=== PATIENT | female | born 1970 ===

== ENCOUNTER → 2024-08-24 09:37 | Outpatient (BNVA) | payer MEDICAID, SELFPAY | PROVIDERS: Visit Provider Orthopaedic Surgery | DX: M65.321 Trigger finger, right index finger (principal); M65.331 Trigger finger, right middle finger; G40.909 Epilepsy, unspecified, not intractable, without status epilepticus; K58.9 Irritable bowel syndrome, unspecified | CPT/HCPCS: 73130; 99204 ==

== ENCOUNTER 2024-09-27 06:16 | Day surgery (SDC) | payer MEDICAID, SELFPAY ==
[2024-09-27] VITALS (10 sets, daily range): BP systolic 111–141; BP diastolic 69–91; PULSE 65–76; RESP 15–18; TEMP 36.3–36.7; O2SAT 97–100; BMI 32.8
--- NOTE | 2024-09-27 08:02 | ANES.PREANE2 ---
Pre-Anesthetic Assessment Height/Weight: Height 5 ft 8 in Weight 216 lb Temp Pulse Resp BP Pulse Ox O2 Del Method 97.4 F L 76 18 111/71 98 Room Air 09/27/24 07:40 09/27/24 07:40 09/27/24 07:40 09/27/24 07:40 09/27/24 07:40 09/27/24 07:40 Preop Diagnosis: Trigger finger Operation Date: 09/27/24 09:30 Proposed Procedures p RIGHT Index and RIGHT Long Finger Trigger Finger Release(Right) - Montana Barry MD Was Beta Preeti taken within 24 hours: N/A Was Clonidine taken within 24 hours: N/A Last intake: Intake Last Liquid Date 09/26/24 Last Liquid Time 18:00 Last Solid Date 09/26/24 Last Solid Time 18:00 Social No alcohol and No tobacco Quit smoking in March Exam alert, oriented x 3 and regular rate & rhythm Airway Submandibular: within normal limits Cervical ROM: within normal limits Mallampati: Class II Comments: Comments: Edentulous Anesthetic Plan ASA status: 3 Anesthesia: General Other: No prior issues with anesthesia NPO since yesterday evening History of GERD, controlled with omeprazole Denies any cardiac issues Quit smoking in March Chronic seizures, states that phenytoin is the only thing that has worked for her. Patient also has a VNS unit. Last seizure was in May Plan for general anesthesia with LMA Medications/Allergies Home Medications ?Medication ?Instructions ?Recorded ?Confirmed ?Last Taken ?Type atorvastatin 20 mg tablet 20 mg PO DAILY 08/24/24 09/26/24 09/26/24 History clonazepam 0.5 mg tablet 0.5 mg PO PRN PRN Anxiety 08/24/24 09/26/24 Unknown History diphenhydramine HCl 25 mg capsule 25 mg PO TID PRN Sleep 08/24/24 09/26/24 09/26/24 History (Benadryl) duloxetine 60 mg capsule,delayed 60 mg PO DAILY 08/24/24 09/26/24 09/12/24 History release omeprazole 40 mg capsule,delayed 40 mg PO DAILY 08/24/24 09/26/24 09/26/24 History release phenytoin sodium extended 100 mg 100 mg PO DAILY 08/24/24 09/26/24 09/26/24 History capsule Allergies Allergy/AdvReac Type Severity Reaction Status Date / Time cephalexin (From Keflex) Allergy Severe swelling Verified 09/26/24 14:59 gabapentin (From Neurontin) Allergy Severe Unknown Verified 09/26/24 14:59 latex Allergy Severe ADR-Itching Verified 09/26/24 14:59 Penicillins Allergy Severe rash Verified 09/26/24 14:59 Sulfa (Sulfonamide Allergy Severe ALGY-Difficulty Verified 09/26/24 14:59 Antibiotics) Breathing acetaminophen (From Tylenol) AdvReac Severe halucinatio Verified 09/26/24 14:59 ns PFSH Anesthesia Family History (Updated 08/24/24 @ 10:01 by Shelby Nova MA) Father Cancer Brother Clotting disorder Social History Smoking and tobacco/nicotine status: former use of tobacco/nicotine Quit status (tobacco/nicotine): has quit using Year quit tobacco: 2024 Second hand smoke exposure: No Alcohol intake: former Substance/Drug Use: never
--- NOTE | 2024-09-27 08:03 | W.PM.OPSUD ---
Surgery/Procedure H&P Update DATE OF PROCEDURE: September 27, 2024 DATE H&P PERFORMED: 08/24/24 H&P UPDATE INFORMATION: I have reviewed H&P completed within last 30 days, I have examined patient prior to procedure and No changes to prior documentation PREOP DIAGNOSIS: Trigger fingers of right index and long finger PLANNED PROCEDURE: Operation Date: 09/27/24 09:30 Proposed Procedures p RIGHT Index and RIGHT Long Finger Trigger Finger Release(Right) - Montana Barry MD
[2024-09-27] MEDS: BUPivacaine 0.5% INJ 10 mL INJECTION (08:57)
--- NOTE | 2024-09-27 09:09 | P.OP_ITS ---
Operative Report Date of procedure: September 27, 2024 Surgeon: Montana Barry MD Procedure: Preoperative diagnosis: Trigger fingers of the right index and right long fingers Postoperative diagnosis: Same Procedure: Trigger finger release of index and long fingers of the right hand Surgeon: Montana Steinberg MD Anesthesia: General With local anesthetic EBL: None Indications: Reema is a 54-year-old white female who presented to the orthopedic clinics with triggering of her index and long finger. This has been worsening over the last several months to years to the point now that she has to manually straighten her fingers when she has them locked down. This become very painful and is hinder some activities of daily living. Therefore after clinical exam proved that there was triggering of the fingers and that there was nodules in the flexor tendon patient was offered trigger finger release of the index and long finger of the right hand. All risks benefits treatment alternatives are discussed with the patient she is agreeable to this at this time. Procedure: After obtaining her consent patient was taken the operating room on her [facility] and had general anesthetic administered. Once good anesthesia was achieved right upper extremities prepped and draped usual fashion. After surgical timeout an Esmarch was used to exsanguinate the hand and to use as a tourniquet on the mid forearm region. Identification of the nodule of the long finger was identified and a skin incision made perpendicular to the axis of the finger and tendon at the mid palmar crease. Sharp dissection taken down to subcutaneous tissue. Then in blunt sharp fashion with tenotomy scissors tendon sheath is identified. This was then opened up with a #15 blade. Tenotomy scissors then used to divide the A1 sandy of the long finger. Fingers with range of motion and tendon was gliding normally. Attention was then turned to the index finger. In a similar fashion nodule of the flexor tendon was identified and a mid palmar crease incision was made perpendicular to the axis of the tendon. Once below subcutaneous tissues blunt sharp dissection with tenotomy scissor was done down to the tendon sheath. Tendon sheath open #1 5 blade. A1 pulleys then divided with small tenotomy scissors. Fingers with range of motion and tendon is gliding smoothly. Wounds were then closed with 3- 0 nylon horizontal mattress sutures as well as interrupted sutures. Wounds were then injected with half percent Marcaine plain for postoperative pain management. Wounds were then dressed with Xeroform gauze sterile gauze dressing, Kerlix wrap, and Kuldeep wrap for compression. Patient was awakened transferred to cover room in stable condition
[2024-09-27] MEDS: HYDROcodone-acetaminophen 5-325 mg Tablet 1 TAB PO (10:37)
--- NOTE | 2024-09-27 10:45 | ANE.PACU2 ---
Inpatient post-anesthesia follow up: Airway intact: Yes Vital signs: Temperature 98.1 F Pulse Rate 74 Respiratory Rate 16 Blood Pressure 114/81 Pulse Oximetry 98 Oxygen Delivery Me thod Room Air Oxygen Flow Rate 8 Fraction of Inspir ed Oxygen Hydration adequate: Yes Nausea and vomiting: No Pain level: 2 Mental status: Baseline
== END 2024-09-27 10:45 | disposition home or self-care (01) ==
PROVIDERS: PCP Family Medicine; Visit Provider Orthopaedic Surgery
PROC: (CPT 26055; principal; 2024-09-27 09:20)
DX: M65.321 Trigger finger, right index finger (principal); M65.331 Trigger finger, right middle finger; K21.9 Gastro-esophageal reflux disease without esophagitis; G40.909 Epilepsy, unspecified, not intractable, without status epilepticus; Z87.891 Personal history of nicotine dependence
CPT/HCPCS: 26055 ×2; J1100; J2405; J2704; J3010; J3490; J7030; J9999

== ENCOUNTER → 2024-10-10 08:44 | Outpatient (BNVA) | payer MEDICAID, SELFPAY | PROVIDERS: PCP Family Medicine; Visit Provider Orthopaedic Surgery | DX: Z98.890 Other specified postprocedural states (principal) | CPT/HCPCS: 99024 ==